=== PATIENT | male | born 1985 | race Caucasian/White ===

== ENCOUNTER 2019-05-16 18:37 | Emergency (ER) | payer SELFPAY ==
[~2019-05-16] VITALS: Ht 182.9 cm; Wt 88.5 kg
[2019-05-16 18:45] VITALS: BP 143/82
--- NOTE | 2019-05-16 18:47 | NUR ---
patient came in due to throat pain since . Been taking PCN PO atb x 4 days. On room air, breathing evenly and unlabored. Kept comfortable, will continue to monitor accordingly. Ambulatory with steady gait.
[2019-05-16] MEDS ORDERED: DEXAMETHASONE SOD PHOSPHATE 4 MG/ML VIAL IM ONE (19:00)
[2019-05-16] MEDS ORDERED: PENICILLIN G BENZATHINE 2.4 MMU/4 ML ML IM ONE ×2 (19:00→19:09)
[2019-05-16] MEDS ORDERED: DEXAMETHASONE SOD PHOSPHATE 4 MG/ML VIAL ONE (19:09)
== END 2019-05-16 19:25 | disposition home or self-care (01) ==
LOC: ER 18:40
DX: J02.0 Streptococcal pharyngitis (principal)
CPT/HCPCS: 96372 ×2; 99283; J0558; J1100